=== PATIENT | male | born 1990 | race American Indian/Alaskan Native ===

== ENCOUNTER 2018-12-30 05:47 | Emergency (ER) | payer MEDICAID, OTHER ==
[2018-12-30 06:07] VITALS: BP 126/85
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
[2018-12-30 06:40] LABS: ANION GAP 16.6; CHLORIDE,CL 101 mmol/L (101-111); SODIUM,NA 136 mmol/L (135-145)
== END 2018-12-30 09:14 | disposition home or self-care (01) ==
LOC: DL.ED 05:47
DX: T68.XXXA Hypothermia, initial encounter (principal); T69.9XXA Effect of reduced temperature, unspecified, initial encounter; F17.210 Nicotine dependence, cigarettes, uncomplicated
CPT/HCPCS: 36415; 80053; 85025; 99284; G0480

== ENCOUNTER 2022-05-17 03:19 | Emergency (ER) | payer MEDICAID, OTHER ==
[2022-05-17 03:19] VITALS: BP 135/79; PULSE 85
[2022-05-17 04:41] LABS: ANION GAP 15.2 mEq/L (7-13); CHLORIDE,CL 104 mmol/L (98-107); SODIUM,NA 144 mmol/L (136-145)
[2022-05-17 04:57] LABS: ESTIMATED GFR 75 mL/min (>=60)
== END 2022-05-17 05:05 | disposition home or self-care (01) ==
LOC: DL.ED 03:19
DX: R19.7 Diarrhea, unspecified (principal); F17.210 Nicotine dependence, cigarettes, uncomplicated
CPT/HCPCS: 36415; 80053; 85025; 87045; 87046; 87328; 87329; 87899; 99284

== ENCOUNTER 2023-09-14 01:15 | Emergency (ER) | payer MEDICAID ==
[2023-09-14 01:32] VITALS: BP 140/87; PULSE 88
[2023-09-14] MEDS: Triamcinolone Acetonide 0.1% Oint 15 GM Tube TOP ONE (01:48)
== END 2023-09-14 01:53 | disposition home or self-care (01) ==
LOC: DL.ED 01:15
DX: L30.9 Dermatitis, unspecified (principal); F17.210 Nicotine dependence, cigarettes, uncomplicated
CPT/HCPCS: 99282; A9270-GY

== ENCOUNTER 2023-09-24 04:57 | Emergency (ER) | payer MEDICAID ==
[2023-09-24] MEDS ORDERED: Sodium Chloride 0.9% 10 ML Syringe FLUSH PRN (05:18)
[2023-09-24 05:28] LABS: BASOPHILS PERCENT AUTO 0.3 % (0.0-1.0); EOSINOPHILS PERCENT AUTO 0.5 % (1.0-3.0); HEMATOCRIT 44.9 % (40.0-54.0); HEMOGLOBIN 14.8 g/dL (14.0-18.0); LYMPHOCYTES PERCENT AUTO 15.3 % (20.5-50.1); MEAN CORPUSCULAR HEMOGLOBIN 31.4 pg (27.0-34.0); MEAN CORPUSCULAR VOLUME 95.3 fL (80-100); MONOCYTES PERCENT AUTO 10.1 % (2-8); NEUTROPHILS PERCENT AUTO 73.8 % (42.2-75.2); PLATELET COUNT,PLT 214 10^3/uL (150-450); RED BLOOD CELL COUNT 4.71 10^6/uL (4.6-6.2); WHITE BLOOD CELL COUNT,WBC 9.4 10^3/uL (5.0-10.0)
[2023-09-24 05:34] LABS: APPEARANCE,URINE CLEAR (CLEAR); BILIRUBIN,URINE NEGATIVE (NEGATIVE); COLOR,URINE YELLOW (YELLOW); GLUCOSE,URINE NEGATIVE (NEGATIVE); KETONES,URINE NEGATIVE (NEGATIVE); LEUKOCYTE ESTERASE,URINE NEGATIVE (NEGATIVE); NITRITE,URINE NEGATIVE (NEGATIVE); OCCULT BLOOD,URINE NEGATIVE (NEGATIVE); PH,URINE 5.5 (5.0-9.0); PROTEIN,URINE 30 (NEGATIVE); UROBILINOGEN,URINE 0.2 mg/dL (0.2-1.0)
[2023-09-24 05:37] LABS: METHAMPHETAMINES,URINE POSITIVE (NEGATIVE)
[2023-09-24] MEDS ORDERED: Iopamidol 612 MG/ML 100 ML Bottle IVPUSH ONE (05:37)
[2023-09-24 05:38] LABS: AMPHETAMINES,URINE POSITIVE (NEGATIVE); BARBITURATES,URINE NEGATIVE (NEGATIVE); BENZODIAZEPINE,URINE NEGATIVE (NEGATIVE); MDMA (ECSTASY), URINE POSITIVE (NEGATIVE); METHADONE,URINE NEGATIVE (NEGATIVE); OPIATES,URINE NEGATIVE (NEGATIVE); OXYCODONE,URINE NEGATIVE (NEGATIVE); PHENCYCLIDINE,URINE NEGATIVE (NEGATIVE); TCA,URINE NEGATIVE (NEGATIVE)
[2023-09-24 05:41] LABS: BACTERIA,URINE RARE /HPF (0-FEW/HPF); EPITHELIAL CELLS,URINE RARE /HPF (NOT SEEN); MUCUS,URINE FEW /LPF (NOT SEEN); RBC,URINE 0-5 /HPF (0-5); WBC,URINE 0-5 /HPF (0-5/HPF)
[2023-09-24 05:46] LABS: A/G RATIO 0.9; ALBUMIN 3.5 g/dL (3.4-5.0); ANION GAP 6.4 mEq/L (7-13); BILIRUBIN TOTAL 0.4 mg/dL (0.2-1.0); BUN/CREATININE RATIO 12.4 (No establ ref range); CALCIUM 8.8 mg/dL (8.5-10.1); CREATININE 1.29 mg/dL (0.70-1.30); EST CRCL DRUG DOSING (CG) 82.53 mL/min; MAGNESIUM 1.9 mg/dL (1.8-2.4); POTASSIUM,K 4.4 mmol/L (3.5-5.1); PROTEIN TOTAL,TP 7.3 g/dL (6.4-8.2)
[2023-09-24 05:49] LABS: LACTIC ACID 0.5 mmol/L (0.4-2.0)
[2023-09-24] MEDS ORDERED: diphenhydrAMINE 50 MG/ML SDV IVPUSH ONE (07:14)
[2023-09-24 08:06] VITALS: BP 107/74; PULSE 78
== END 2023-09-24 08:28 | disposition home or self-care (01) ==
LOC: DL.ED 04:57
DX: L03.115 Cellulitis of right lower limb (principal); F17.210 Nicotine dependence, cigarettes, uncomplicated
CPT/HCPCS: 36415; 73701-RT; 80053; 80305-QW; 81001; 83605; 83735; 85025; 87040; 96365; 96366; 96375; 99284; 99284-25; J1200; J3370; J3490; J7050; Q9967

== ENCOUNTER 2023-11-20 12:54 | Emergency (ER) | payer MEDICAID ==
[2023-11-20 13:17] VITALS: BP 123/82; PULSE 101
== END 2023-11-20 14:05 | disposition left against medical advice (07) ==
LOC: DL.ED 12:54
DX: M25.571 Pain in right ankle and joints of right foot (principal); F17.210 Nicotine dependence, cigarettes, uncomplicated
CPT/HCPCS: 73610-RT; 99282; 99283

== ENCOUNTER 2023-11-26 23:50 | Emergency (ER) | payer MEDICAID ==
[2023-11-27] MEDS ORDERED: Sulfamethoxazole/Trimethoprim 800-160 MG Tab PO ONE (00:08)
[2023-11-27] MEDS ORDERED: Acetaminophen/oxyCODONE 325-5 MG Tab PO ONE (00:08)
[2023-11-27] MEDS ORDERED: Ketorolac 30 MG/ML SDV IM ONE (00:09)
[2023-11-27] MEDS ORDERED: Take Home: Sulfamethoxazole/Trimethoprim 800-160 MG Tab, 6 Tab Pack PO ONE (00:14)
[2023-11-27] MEDS ORDERED: Ibuprofen 600 MG Tab PO ONE (00:15)
[2023-11-27 00:16] VITALS: BP 120/70; PULSE 89
== END 2023-11-27 00:36 | disposition home or self-care (01) ==
LOC: DL.ED 23:50
DX: L03.115 Cellulitis of right lower limb (principal); Z79.899 Other long term (current) drug therapy
CPT/HCPCS: 10060; 87070; 96372; 99283; A9270; J1885

== ENCOUNTER 2023-12-23 19:18 | Emergency (ER) | payer MEDICAID | END 2023-12-23 19:51 | disposition left against medical advice (07) | LOC: DL.ED 19:18 | DX: Z53.21 Procedure and treatment not carried out due to patient leaving prior to being seen by health care provider (principal) ==

== ENCOUNTER 2023-12-24 06:42 | Emergency (ER) | payer MEDICAID ==
[2023-12-24] MEDS: Doxycycline Monohydrate 100 MG Cap PO ONE (08:04)
[2023-12-24] MEDS: Amoxicillin/Clavulanate K 875-125 MG Tab PO ONE (08:04)
[2023-12-24] MEDS: Take Home: Amoxicillin/Clavulanate K 875-125 MG Tab, 6 Tab Pack PO ONE (08:04)
[2023-12-24] MEDS: Take Home: Doxycycline 100 MG Cap, 4 Cap Pack PO ONE (08:04)
[2023-12-24 08:38] VITALS: BP 121/73; PULSE 75
== END 2023-12-24 08:15 | disposition home or self-care (01) ==
LOC: DL.ED 06:42
DX: L03.115 Cellulitis of right lower limb (principal); Z86.16 Personal history of COVID-19
CPT/HCPCS: 99283; A9270